=== PATIENT | female | born 1955 | race Caucasian/White ===

== ENCOUNTER → 2017-01-20 | Day surgery (SDC) | payer OTHER | LOC: OPS 12:10 | PROC: 0DJD8ZZ Inspection of Lower Intestinal Tract, Via Natural or Artificial Opening Endoscopic (ICD-10-PCS; principal; 2017-01-20) | DX: K62.5 Hemorrhage of anus and rectum (principal); R94.31 Abnormal electrocardiogram [ECG] [EKG]; R07.9 Chest pain, unspecified; Z87.891 Personal history of nicotine dependence; I73.9 Peripheral vascular disease, unspecified; J44.9 Chronic obstructive pulmonary disease, unspecified; M19.90 Unspecified osteoarthritis, unspecified site; G40.909 Epilepsy, unspecified, not intractable, without status epilepticus; R05 Cough | CPT/HCPCS: 94640; 94664; 99070; J2704 ==